=== PATIENT | male | born 1980 | race African-American/Black ===

== ENCOUNTER → 2024-01-03 | Outpatient (BNVA) | payer MEDICAID, SELFPAY | END | disposition home or self-care (01) | PROVIDERS: Visit Provider Urology | DX: N40.0 Benign prostatic hyperplasia without lower urinary tract symptoms (principal); Z80.42 Family history of malignant neoplasm of prostate; N28.89 Other specified disorders of kidney and ureter; I10 Essential (primary) hypertension; E66.9 Obesity, unspecified; Z68.30 Body mass index [BMI] 30.0-30.9, adult; E27.9 Disorder of adrenal gland, unspecified | CPT/HCPCS: 81003; 99202; G0463 ==

== ENCOUNTER → 2024-01-14 | Outpatient (BNVA) | payer MEDICAID, SELFPAY | END | disposition home or self-care (01) | PROVIDERS: Visit Provider Urology | DX: N28.89 Other specified disorders of kidney and ureter (principal) | CPT/HCPCS: 99212; G0463 ==

== ENCOUNTER → 2024-04-21 | Outpatient (BNVA) | payer MEDICAID, SELFPAY | END | disposition home or self-care (01) | PROVIDERS: Visit Provider Urology | DX: N40.0 Benign prostatic hyperplasia without lower urinary tract symptoms (principal); N28.89 Other specified disorders of kidney and ureter; Z80.42 Family history of malignant neoplasm of prostate; I10 Essential (primary) hypertension; E66.9 Obesity, unspecified; Z68.30 Body mass index [BMI] 30.0-30.9, adult | CPT/HCPCS: 99212; 99213; G0463 ==

== ENCOUNTER → 2025-01-02 | Outpatient (BNVA) | payer MEDICAID, SELFPAY | END | disposition home or self-care (01) | PROVIDERS: Visit Provider Urology | DX: N28.89 Other specified disorders of kidney and ureter (principal); Z80.0 Family history of malignant neoplasm of digestive organs | CPT/HCPCS: 81003; 99212; G0463 ==